=== PATIENT | female | born 1965 | race Caucasian/White ===

== ENCOUNTER 2017-11-10 09:56 | Outpatient (CLI) | payer OTHER ==
--- NOTE | 2017-11-10 11:01 | ULT ---
ABDOMEN ULTRASOUND: HISTORY: Increased LFTs. FINDINGS: The liver, spleen, gallbladder, kidneys, and visualized portions of the pancreas (tail not seen), aor ta, and IVC appear normal. No free fluid is seen. The common duct measures 3 mm in diameter. IMPRESSION: No significant abnormalities identified. POS: [facility]
== END 2017-11-10 09:57 | disposition home or self-care (01) ==
LOC: SCSULT 09:56
PROVIDERS: ATTEND Internal Medicine Gastroenterology
DX: R94.5 Abnormal results of liver function studies (principal); D69.6 Thrombocytopenia, unspecified
CPT/HCPCS: 76700

== ENCOUNTER 2017-12-07 10:49 | Outpatient (CLI) | payer OTHER | END 2017-12-07 10:50 | disposition home or self-care (01) | LOC: BICMAMMO 10:49 | PROVIDERS: ATTEND Obstetrics & Gynecology | DX: Z12.31 Encounter for screening mammogram for malignant neoplasm of breast (principal); R92.1 Mammographic calcification found on diagnostic imaging of breast | CPT/HCPCS: 77063; 77067 ==

== ENCOUNTER 2017-12-09 16:12 | Outpatient (CLI) | payer OTHER ==
[2017-12-09 17:14] LABS: Hemoglobin 13.3 g/dL (12.0-16.0); Mean Corpuscular HGB CONC 33.7 g/dL (32.0-36.0); Mean Corpuscular Hemoglobin 30.6 pg (27.0-31.0); Mean Corpuscular Volume 90.6 fL (78.0-98.0); Mean Platelet Volume 10.2 fL (7.4-10.4); Platelet Count 200 thou/uL (130-400); RBC Distribution Width 11.7 % (11.5-14.5); Red Blood Cell (RBC) Count 4.34 mill/uL (4.20-5.40); White Blood Cell (WBC) Count 10.2 thou/uL (4.8-10.8)
[2017-12-09 17:28] LABS: Anion Gap 13 mmol/L (10-20); BUN (Urea Nitrogen) 20 mg/dL (9.8-20.1); Calc. Creatinine Clearance 0 mL/min (70-130); Calcium 9.9 mg/dL (7.8-10.44); Carbon Dioxide 25 mmol/L (22-29); Chloride 105 mmol/L (98-107); Estimated GFR-MDRD 70; Glucose 86 mg/dL (70-105); Potassium 3.9 mmol/L (3.5-5.1); Sodium 139 mmol/L (136-145)
== END 2017-12-09 16:13 | disposition home or self-care (01) ==
LOC: LABBT 16:12
PROVIDERS: ATTEND Obstetrics & Gynecology
DX: Z01.812 Encounter for preprocedural laboratory examination (principal); N92.0 Excessive and frequent menstruation with regular cycle
CPT/HCPCS: 80048; 85027; 86850; 86900; 86901

== ENCOUNTER 2017-12-13 08:00 | Day surgery (SDC) | payer OTHER ==
--- NOTE | 2017-12-09 15:58 | HP ---
HISTORY OF PRESENT ILLNESS: Ms. Hackett is a 52-year-old white female with prior x2 and tuba l ligation, who has been having 5 weeks of daily light or spotty bleeding. She has been having this ongoing for a good while. She was offered progestin therapy and Mirena IUD for the therapy after a b iopsy showed benign proliferative findings. She states she is tired of it and wants definitive surgi evelio therapy. Her recent Pap smear is up to date. PAST MEDICAL HISTORY: Hypertension. She does have a borderline thrombocytopenia of 100,000, which s he saw Dr. Hazel Heck recently in Hematology. It was felt it was related to her hydrochlorothiazid e use and there are no issues currently to prohibit her from having surgery. She has also been clear ed by Cardiology with recent normal echo and stress test at [facility]. PAST SURGICAL HISTORY: Significant for x2, D&C x2. She has had an open cystectomy of the ovary at age 25 for benign tumor. She has had periodontal and oral surgery and also reports a histor y of ureteral reimplantation at age 2. ALLERGIES: She has no known drug allergies. CURRENT MEDICATIONS: Pravastatin 20 mg daily, benazepril/hydrochlorothiazide 10/12.5 mg daily, Bysto lic 5 mg daily, probiotic, Provera 10 mg daily. FAMILY HISTORY: Noncontributory. PHYSICAL EXAMINATION: VITAL SIGNS: She is 5 feet 7, 211 pounds, BMI 33, blood pressure 130/78, pulse regular 75, respirati ons 18. HEENT: Within normal limits. CHEST: Clear to auscultation. HEART: Regular rate and rhythm, no murmurs, rubs or gallops. ABDOMEN: Soft, nontender, nondistended. No masses. Well-healed vertical midline scar noted. PELVIC: Vulva and vagina had no lesions. Cervix had no lesions. Uterus had no masses, normal size and nontender. Adnexa are nontender with no masses. The uterus sounded to 8 cm during her endometri al biopsy by Dr. Ferrari. ASSESSMENT: This is a 52-year-old white female, G2, P2, prior x2 which having some ongoing continued vaginal bleeding. Her endometrial biopsy was benign. Follicle stimulating hormone obtain ed showed her to be borderline menopause at 27. The patient is desiring definitive surgical therapy. History of thrombocytopenia, mild, which most likely related to hydrochlorothiazide use. Most rece ntly platelets were above 100,000, chronic hypertensive with recent Cardiology clearance preop noted. PLAN: Is to proceed with robotic total laparoscopic hysterectomy with BSO. Risks and benefits of pr ocedure discussed in detail and set for surgery on 12/13/2017.
[2017-12-09 16:34] VITALS: BMI 33.0
[2017-12-13] MEDS ORDERED: Famotidine/PF 20 mg/2ml Vial ONE (08:25)
[2017-12-13] MEDS ORDERED: Gabapentin 300 MG CAP ONE (08:25)
[2017-12-13] MEDS ORDERED: CEFAZOLIN/Water 2 GM/20 ML SYRINGE ONE (08:26)
[2017-12-13] MEDS ORDERED: CeleCOXIB 100 MG CAP ONE (08:26)
[2017-12-13] MEDS ORDERED: Bupivacaine HCl 0.5%/Epinephrine 1:200,000/PF 30 ml Vial ONE (09:54)
[2017-12-13] MEDS ORDERED: Fentanyl 250 MCG/5 ML VIAL ONE (09:56)
[2017-12-13] MEDS ORDERED: Midazolam HCl 2 mg/2 ml Vial ONE ×2 (09:56→10:03)
[2017-12-13] MEDS ORDERED: Promethazine HCl 25 MG/ML VIAL IM PRN ×2 (11:51→13:24)
[2017-12-13] MEDS ORDERED: Ondansetron HCl/PF 4 MG/2 ML Vial IVP PRN ×2 (11:51→13:24)
[2017-12-13] MEDS ORDERED: Promethazine HCl 25 MG/ML VIAL SLOW IVP PRN (11:51)
[2017-12-13] MEDS ORDERED: Fentanyl 100 MCG/2 ML VIAL ONE ×2 (12:25→13:16)
[2017-12-13] MEDS ORDERED: Simethicone Chewable 80 MG TAB PO PRN (13:24)
[2017-12-13] MEDS ORDERED: traMADol HCl 50 MG TAB PO PRN (13:24)
[2017-12-13] MEDS ORDERED: Zolpidem Tartrate 5 MG TAB PO PRN (13:24)
[2017-12-13] MEDS ORDERED: diphenhydrAMINE 25 MG CAP PO PRN (13:24)
[2017-12-13] MEDS ORDERED: Bisacodyl 10 MG SUPP PR PRN (13:24)
[2017-12-13] MEDS: traMADol HCl 50 MG TAB PO PRN (15:56)
[2017-12-13] MEDS ORDERED: Lidocaine 1% PF 5 ML VIAL ONE (16:44)
[2017-12-13] MEDS ORDERED: PROPOFOL 200 MG/20 ML VIAL ONE (16:44)
[2017-12-13] MEDS ORDERED: Glycopyrrolate 0.2 MG/ML 5 ML SYRINGE ONE (16:44)
[2017-12-13] MEDS ORDERED: Dexamethasone 20 MG/5 ML VIAL ONE (16:44)
[2017-12-13] MEDS ORDERED: Ketorolac Tromethamine 30 MG/ML VIAL ONE (16:44)
[2017-12-13] MEDS ORDERED: Ondansetron HCl/PF 4 MG/2 ML Vial ONE (16:44)
[2017-12-13] MEDS: Acetaminophen 1,000 MG in Premix Bag 1 BAG IVPB SCH ×2 (18:41→23:46)
[2017-12-13] MEDS: Ketorolac Tromethamine 30 MG/ML VIAL IVP SCH ×2 (18:41→23:42)
[2017-12-13] MEDS: Lactated Ringer's 1,000 ML IV SCH ×2 (18:44→21:47)
--- NOTE | 2017-12-14 02:33 | OP ---
DATE OF SURGERY: 12/13/2017 PREOPERATIVE DIAGNOSES: 1. A 52-year-old white female with menorrhagia and dysmenorrhea and uterine fibroids. 2. Prior section x2. 3. Desire definitive surgical therapy. POSTOPERATIVE DIAGNOSES: 1. A 52-year-old white female with menorrhagia and dysmenorrhea and uterine fibroids. 2. Prior section x2. 3. Desire definitive surgical therapy. PROCEDURES PERFORMED: Robotic total laparoscopic hysterectomy and bilateral salpingo-oophorectomy. SURGEON: Jahaira Tinoco M.D. MEAT STOCK CLERK SURGEON: Nathan Ferrari M.D. ANESTHESIA: General endotracheal. ESTIMATED BLOOD LOSS: 25 mL. COMPLICATIONS: None. COUNTS: Correct x2. ANTIBIOTICS: Two grams Ancef on-call to OR. FINDINGS: 1. Normal right and left ovaries and fallopian tubes. 2. Uterus with several small intramural fibroids. 3. Bladder was watertight to over 300 mL fluid distention post-procedure and bilateral ureteral amy stalsis was visualized post-procedure. DISPOSITION: To the recovery room stable. DESCRIPTION OF OPERATIVE PROCEDURE: Patient previously received informed consent in regard to surger y. She was taken back to the operating room, where she received a general endotracheal anesthetic ag ent without complications. She was placed in the dorsal lithotomy position with the use of Rebel sti rrups and prepped and draped in the usual sterile fashion. At this time, a Azul catheter was placed and a side-arm speculum was placed in the vagina. A single-tooth tenaculum was applied to the cervi x and the uterus sounded to 9 cm. A size 8 cm RANDOLPH uterine manipulator with 4.0 cervical cup was the n placed. Tenaculum and speculum were removed. Attention was then turned to the abdomen, where pers pective trocar sites were infiltrated with 0.5% Marcaine with epinephrine. A 12 mm supraumbilical in cision was made and Veress needle was entered into the abdominal cavity. The abdominal pressures wer e noted to be less than 5 mm on initial entry and the abdomen was then insufflated to patient pressur e of 15 with approximately 4-1/2 liters of carbon dioxide being used. Veress needle was then removed . A 12 mm trocar was then placed through the supraumbilical incision and the robotic laparoscope was then introduced through the trocar sleeve. Proper entry was confirmed. The patient was then placed in Trendelenburg position and additional bilateral lower quadrant 8 mm trocars were placed under lap aroscopic guidance along with the right upper quadrant 11 mm preschool teacher assistant port. The robot was then dock ed in usual fashion. I then proceeded to carry out the surgical procedure from the operative console by my assistants remained at the bedside. The uterus was elevated by my preschool teacher assistant with the Prelert rine manipulator. The left fallopian tube was grasped and this was held stable by my preschool teacher assistant with an atraumatic grasper. Bipolar fenestrated cautery was then utilized to coagulate the left infundibu lopelvic ligament. It was coagulated and transected with monopolar scissors. Serial coagulation of the broad ligament, hugging close to uterine specimen was carried out until the left round ligament w as reached. It was coagulated and transected. The anterior leaf of the broad ligament was entered a nd the vesicouterine peritoneal reflection was incised in the layering technique dissecting the bladd er away from the lower uterine segment past the cervical vaginal angle, which was demarcated by the c ervical cup of the Blownaway uterine manipulator. The left uterine vessels were then skeletonized in a la yering technique again and they were anticoagulated for hemostasis at the internal cervical os region . This was then carried out on the right fallopian tube and infundibulopelvic ligament, where again it was grasped by my preschool teacher assistant at the fimbria. The right infundibulopelvic ligament was then identified . It was coagulated hugging close to these near the ovary and this was coagulated and transected wit h monopolar scissors. Serial coagulation again, the broad ligament, hugging close to uterine specime n again was carried out until the right round ligament was reached. It was coagulated and transected . Again, the vesicouterine peritoneal incision was incised. Incision was made incising the vesicout erine peritoneum in a layering technique, taking down the bladder atraumatically both sharply and kate ntly. Once the anterior clearance of the lower uterine segment of the bladder past the cervical vagi nal angle was completed, the bladder was distended again confirming water tightness. The vessels at the internal cervical os on the right side were also coagulated securing hemostasis. The anterior co lpotomy was then carried out starting from the 12 to 3 and 12 to 9 o'clock position. The uterine ves sels at the 3 and 9 o'clock again were secured with bipolar fenestrated cautery. The posterior colpo dot was completed from 6 to 3 and 6 to 9 o'clock in likewise fashion. The uterus and cervical speci men adnexal structures were then brought into the vaginal vault by my preschool teacher assistant. The vaginal cuff wa s then made hemostatic with bipolar fenestrated cautery. The monopolar scissor had been switched wit h [place] needle personal driver. My preschool teacher assistant then brought the Stratafix suture from the right upper quadrant preschool teacher assistant port and then the vaginal cuff was closed in full thickness closure starting at the right v aginal angle towards the left vaginal angle and back towards the midline securing hemostasis. This s uture and needle were then removed through the right upper quadrant trocar site. The pelvis was then irrigated. The bladder again was distended confirming water tightness. Bilateral ureteral peristal sis was visualized. Pedicle sites were all hemostatic. The robot was then undocked. If this carbon dioxide gas was released from the abdomen and the trocar sleeves were removed. A lgaapy-ro-srhgg arredondo ture of 0 Vicryl was placed in the fascial defect of the supraumbilical incision and then the remaini ng trocar sites were closed with 4-0 Monocryl suture in subcuticular stitch fashion. Dermabond was t hen placed. The vaginal vault was checked for hemostasis with a sponge stick and this was confirmed. The patient was then awakened from anesthesia and transferred to the recovery room in stable condit ion.
[2017-12-14] MEDS: Acetaminophen 1,000 MG in Premix Bag 1 BAG IVPB SCH (05:36)
[2017-12-14] MEDS: Ketorolac Tromethamine 30 MG/ML VIAL IVP SCH (05:36)
[2017-12-14 05:42] LABS: Hemoglobin 11.6 g/dL (12.0-16.0); Mean Corpuscular HGB CONC 33.7 g/dL (32.0-36.0); Mean Corpuscular Volume 91.8 fL (78.0-98.0); Mean Platelet Volume 7.8 fL (7.4-10.4); Platelet Count 271 thou/uL (130-400); RBC Distribution Width 11.5 % (11.5-14.5); Red Blood Cell (RBC) Count 3.74 mill/uL (4.20-5.40); White Blood Cell (WBC) Count 11.5 thou/uL (4.8-10.8)
[2017-12-14] MEDS: Lactated Ringer's 1,000 ML IV SCH (06:14)
--- NOTE | 2017-12-14 08:53 | PDOC.EVN ---
Event Note - Event Note Event Note: S: tolerating diet. Good pain control O: AFVSS. P75 R20 119/66 abdomen soft/non tender. Active BS. trochar sites C/D/I A/P: post op day 1 from Robotic TLH/BSO...doing well. D/c home. F/u 2 and 6 weeks.
[2017-12-14] MEDS ORDERED: Aspirin 81 mg Enteric Coated Tablet PO SCH (09:00)
[2017-12-14] MEDS ORDERED: Hydrochlorothiazide 25 MG TAB PO SCH (09:00)
[2017-12-14] MEDS ORDERED: Lactinex Tablet PO SCH (09:00)
[2017-12-14] MEDS ORDERED: Atorvastatin Calcium 20 MG TAB PO SCH (09:00)
[2017-12-14] MEDS ORDERED: Nitrofurantoin Monohyd/M-Cryst 100 MG CAP PO SCH (09:00)
[2017-12-14] MEDS: traMADol HCl 50 MG TAB PO PRN (11:15)
[2017-12-14 11:41] VITALS: BP 131/71; TEMP 98.2
[2017-12-14] MEDS ORDERED: Nebivolol HCl 5 MG TAB PO SCH (21:00)
[2017-12-14] MEDS ORDERED: diphenhydrAMINE 25 MG CAP PO SCH (21:00)
--- NOTE | 2017-12-14 21:19 | DIS ---
DATE OF ADMISSION: 12/13/2017 DATE OF DISCHARGE: 12/14/2017 DIAGNOSES: Symptomatic uterine fibroids, menorrhagia and dysmenorrhea. PROCEDURE PERFORMED: Robotic total laparoscopic hysterectomy with bilateral salpingo-oophorectomy. SUMMARY OF HOSPITAL COURSE: Ms. Hackett is a 52-year-old white female with prior x2, who has been having menorrhagia issues. She had noted uterine fibroids and underwent definitive surgical th erapy with robotic TLH/BSO. Postoperatively, the patient has done well. She has remained afebrile a nd her vital signs remained stable. Her postoperative hematocrit was 34.3%. She was ambulating, voi ding without difficulty and tolerating regular diet at time of discharge. Pathology is pending at th is time. She was discharged home with Tramadol 50 mg q.6 hours p.r.n. pain, [id number] ibuprof en for supplemental pain medicine. She is to resume her medications for chronic hypertension as dire cted. She has a followup in 2 and 6 weeks.
[2017-12-18] MEDS ORDERED: Ibuprofen 800 MG TAB PO SCH (22:00)
== END 2017-12-14 12:00 | disposition home or self-care (01) ==
LOC: SDC 08:00 → 3SE 13:40 → EDSTATUS 16:15 → SDC 12-14 12:00
PROVIDERS: ATTEND Obstetrics & Gynecology
PROC: 0UT94ZZ Resection of Uterus, Percutaneous Endoscopic Approach (ICD-10-PCS; principal; 2017-12-13)
PROC: 0UT74ZZ Resection of Bilateral Fallopian Tubes, Percutaneous Endoscopic Approach (ICD-10-PCS; principal; 2017-12-13)
PROC: 0UT24ZZ Resection of Bilateral Ovaries, Percutaneous Endoscopic Approach (ICD-10-PCS; principal; 2017-12-13)
DX: D25.1 Intramural leiomyoma of uterus (principal); I10 Essential (primary) hypertension; D69.6 Thrombocytopenia, unspecified; Z98.891 History of uterine scar from previous surgery; Z79.82 Long term (current) use of aspirin; Z79.899 Other long term (current) drug therapy
CPT/HCPCS: 36415; 85027; 88307; 96374; J0131; J0670; J1100; J1885; J2001; J2250; J2270; J2405; J2704; J3010; S0028

== ENCOUNTER 2018-08-15 12:54 | Outpatient (CLI) | payer OTHER ==
--- NOTE | 2018-08-15 13:45 | ULT ---
ULTRASOUND RETROPERITONEUM COMPLETE: (RENAL) DATE: 08/15/2018. HISTORY: A 52-year-old female with bladder distention. FINDINGS: The right kidney measures 10.5 x 5.5 x 6 cm. The left kidney measures 10.5 x 4.5 x 4.5 cm. Both kid neys have normal cortical thickness and normal cortical echogenicity. There is no hydronephrosis. C ursory images of the urinary bladder demonstrate no gross abnormality. Prevoid bladder volume 310 mL . Postvoid residua: Approximately 15 mL. Bilateral ureteral jets visualized. IMPRESSION: 1. A very small amount of postvoid residua. 2. Otherwise, negative. maritza Rainey POS: [facility]
== END 2018-08-15 12:55 | disposition home or self-care (01) ==
LOC: SCSULT 12:54
PROVIDERS: ATTEND Obstetrics & Gynecology
DX: N32.89 Other specified disorders of bladder (principal)
CPT/HCPCS: 76770